=== PATIENT | male | born 1990 | race Caucasian/White ===

== ENCOUNTER 2017-10-18 11:34 | Emergency (ER) | payer OTHER ==
[~2017-10-18] VITALS: Ht 180.3 cm; Wt 116.0 kg
[~2017-10-18 11:34] MED LIST: CEFT500T PO; CIPR500T2 PO; DOXY100T PO; PROM6.257 PO; Z.0.NO CURRENT MEDS
[2017-10-18 11:37] VITALS: BP 152/52; PULSE 87; RESP 16; TEMP 98.8; O2SAT 98
--- NOTE | 2017-10-18 12:28 | RADRPT ---
EXAM DATE/TIME: 10/18/2017 12:14 [place] COMPARISON: No previous studies available for comparison. INDICATIONS : Cough and chest congestion 5 days, coughing up blood today. MEDICAL HISTORY : None. SURGICAL HISTORY : None. ENCOUNTER: Initial ACUITY: 4 - 6 days PAIN SCORE: 0/10 LOCATION: Bilateral chest FINDINGS: A single view of the chest demonstrates the lungs to be symmetrically aerated without evidence of mas s, infiltrate or effusion. The cardiomediastinal contours are unremarkable. Osseous structures are intact. CONCLUSION: Normal examination for a patient of this age. Sina Chaves MD on October 18, 2017 at 12:26 Board Certified Radiologist. This report was verified electronically.
[2017-10-18] MEDS ORDERED: ALBUAER3 INH (12:50)
[2017-10-18] MEDS ORDERED: BENZ100 PO (12:50)
--- NOTE | 2017-10-18 12:50 | PD ---
HPI Chief Complaint: Respiratory Symptoms Time Seen by Provider: 12:00 Travel History International Travel<30 days: No Contact w/Intl Traveler<30days: No Traveled to known affect area: No History of Present Illness HPI 27 old male here with nasal congestion, cough 5 days. He reports this morning he noticed what he believes was a tiny speck of blood in his sputum prompting his visit. He denies fever, chills, chest pain, shortness of breath, nights sweats, recent weight loss. Symptom severity is mild. No aggravating or alleviating factors. No sick contacts or foreign travel. [facility] Past Medical History Medical History: Denies Significant Hx Diminished Hearing: No Immunizations Current: Yes (UTD ON CHILDHOOD IMMUNUZATIONS) Tetanus Vaccination: < 5 Years Influenza Vaccination: Yes Past Surgical History Surgical History: No Previous Surgery Social History Alcohol Use: Yes (2-3 BEERS DAILY) Tobacco Use: Yes (/ PPD) Substance Use: Yes (DAILY MARIJUANA USE) Allergies-Medications (Allergen,Severity, Reaction): Coded Allergies: azithromycin (Verified Allergy, Severe, RASH, 10/18/17) Reported Meds & Prescriptions Reported Meds & Active Scripts Active Proair Hfa 8.5 GM Inh (Albuterol Sulfate) 90 Mcg/Act Aer 2 Puff INH Q4-6H PRN 108 mcg/actuation Tessalon Perles (Benzonatate) 100 Mg Cap 200 Mg PO TID PRN Review of Systems Except as stated in HPI: all other systems reviewed are Neg Physical Exam Narrative GENERAL: Alert well-appearing 21 central male SKIN: Warm and dry. HEAD: Normocephalic. EYES: No scleral icterus. No injection or drainage. Ear/nose/throat: Clear nasal discharge. Mild pharyngeal erythema without tonsillar hypertrophy or exudate. Uvula is midline. Airway is patent. NECK: Supple, trachea midline. No JVD or lymphadenopathy. CARDIOVASCULAR: Regular rate and rhythm without murmurs, gallops, or rubs. RESPIRATORY: Breath sounds equal bilaterally. No accessory muscle use. GASTROINTESTINAL: Abdomen soft, non-tender, nondistended. MUSCULOSKELETAL: No cyanosis, or edema. BACK: Nontender without obvious deformity. No CVA tenderness. Data Data Last Documented VS Vital Signs Date Time Temp Pulse Resp B/P (MAP) Pulse Ox O2 Delivery O2 Flow Rate FiO2 10/18/17 11:37 98.8 87 16 152/52 (85) 98 Orders Orders Chest, Single Ap (10/18/17 ) Ed Discharge Order (10/18/17 12:50) MDM Medical Decision Making Medical Screen Exam Complete: Yes Emergency Medical Condition: Yes Differential Diagnosis Bronchitis, pneumonia, influenza Narrative Course 27 old male here with nasal congestion, cough 5 days. He reports this morning he noticed what he believes was a tiny speck of blood in his sputum after his visit. He is very well appearing. His vital signs are stable. Chest x-ray is clear. No adventitious breath sounds. He is young and healthy with no comorbid conditions. I suspect this is a viral bronchitis and do not feel antibiotics are appropriate. Patient agrees to this. He has a primary doctor and will follow-up if symptoms fail to improve in several days. Diagnosis Primary Impression: Viral bronchitis Referrals: Primary Care Physician Departure Forms: Tests/Procedures, Work Release Enter return to work date: Oct 19, 2017 Additional Instructions: Medication as as directed. Rest and stay well-hydrated. Follow-up with her primary doctor. Scripts Albuterol 8.5 GM Inh (Proair Hfa 8.5 GM Inh) 90 Mcg/Act Aer 2 PUFF INH Q4-6H Y for SHORTNESS OF BREATH, #1 INHALER 0 Refills 108 mcg/actuation Prov: Debbie Segundo 10/18/17 Benzonatate (Tessalon Perles) 100 Mg Cap 200 MG PO TID Y for COUGH, #12 CAP 0 Refills Prov: Debbie Segundo 10/18/17 Disposition: 01 DISCHARGE HOME Condition: Stable Debbie Segundo Oct 18, 2017 12:50
== END 2017-10-18 13:08 | disposition home or self-care (01) ==
LOC: PHEFT 11:34
DX: J20.8 Acute bronchitis due to other specified organisms (principal); F17.200 Nicotine dependence, unspecified, uncomplicated; F12.10 Cannabis abuse, uncomplicated
CPT/HCPCS: 71045; 99283